=== PATIENT | female | born 1950 | race Caucasian/White ===

== ENCOUNTER 2019-06-07 08:02 | Inpatient (IN) ==
[2019-06-07] MEDS ORDERED: 0.9 % Sodium Chloride 1,000 ML IVC ONE (08:30)
[2019-06-07] MEDS ORDERED: Morphine Sulfate 2 MG/ML SYRINGE IVP ONE (08:30)
[2019-06-07] MEDS ORDERED: Ondansetron 4 MG/2 ML VIAL IVP ONE (08:30)
[2019-06-07] MEDS ORDERED: Isovue-370 500 ML BOTTLE IVP ONE (08:31)
[2019-06-07 08:50] LABS: Basophils % 0.2 %; Eosinophils # 0.1 K/mcL (0.0-0.6); Eosinophils % 0.4 %; Hematocrit 36.3 % (35.3-44.9); Hemoglobin 11.7 g/dL (11.5-15.4); Immature Granulocytes % 0.4 % (0-4); Lymphocytes # 0.3 K/mcL (0.6-4.6); Lymphocytes % 2.3 %; Mean Corpuscular HGB Conc 32.2 g/dL (31.6-35.5); Mean Corpuscular Hemoglobin 28.2 pg (28.0-33.3); Mean Corpuscular Volume 87.5 fL (83.0-100.0); Mean Platelet Volume 9.2 fL (9.4-12.4); Monocytes # 0.4 K/mcL (0.0-1.3); Monocytes % 2.8 %; Neutrophils # 13.8 K/mcL (1.6-8.9); Platelet Count 275 K/mcL (140-400); Red Blood Count 4.15 M/mcL (3.82-4.97); Red Cell Distribution Width 14.6 % (11.5-14.5); Segmented Neutrophils % 93.9 %; White Blood Count 14.7 K/mcL (4.3-11.1)
[2019-06-07] MEDS ORDERED: *HR* HYDROmorphone (PF) 1 MG/ML SYRINGE IVP ONE (08:52)
[2019-06-07 09:10] LABS: Alanine Aminotransferase 30 Units/L (7-52); Albumin 3.9 g/dL (3.5-5.7); Albumin/Globulin Ratio 1.5 (1.1-2.2); Alkaline Phosphatase 81 Units/L (34-104); Amylase 15 Units/L (29-103); Aspartate Amino Transferase 20 Units/L (13-39); BUN/Creatinine Ratio 18 (6-26); Bilirubin,Direct 0.2 mg/dL (0.0-0.2); Bilirubin,Indirect 0.7 mg/dL (0.0-1.0); Bilirubin,Total 0.9 mg/dL (0.3-1.0); Blood Urea Nitrogen 12 mg/dL (8-23); Calcium 9.3 mg/dL (8.6-10.3); Carbon Dioxide 30 mEq/L (23-29); Chloride 96 mEq/L (98-107); Globulin 2.6 g/dL (2.4-3.5); Glucose 130 mg/dL (70-105); Lipase 17 Units/L (11-82); Osmolality,Calculated 284 (280-300); Potassium 3.1 mEq/L (3.5-5.1); Sodium 136 mEq/L (136-145); Total Protein 6.5 g/dL (6.4-8.9); eGFR For African Americans > 60 (> 60); eGFR For Non-African Americans > 60 (> 60)
[2019-06-07] MEDS ORDERED: MetroNIDAZOLE 500 MG/100 ML 500 MG/100 ML BAG IVPB ONE (10:11)
[2019-06-07] MEDS ORDERED: 0.9 % Sodium Chloride 1,000 ML IVC SCH ×2 (10:30→12:14)
[2019-06-07 10:45] LABS: Bilirubin,Urine Negative (Negative); Clarity,Urine Clear (Clear); Color,Urine Yellow (Yellow); Glucose,Urine (UA) Normal (Normal); Ketones,Urine Negative (Negative); Leukocyte Esterase,Urine Negative (Negative); Nitrite,Urine Negative (Negative); PH,Urine 6.5 pH Units (5.0-8.0); Protein,Urine Negative (Neg-Trace); Urobilinogen,Urine Normal (Normal)
[2019-06-07 10:47] LABS: Blood,Urine Negative (Negative)
[2019-06-07] MEDS ORDERED: Acetaminophen 325 MG TABLET PO ONE (11:21)
[2019-06-07] MEDS ORDERED: RESVERATROL PO SCH (12:14)
[2019-06-07] MEDS ORDERED: [UNRECOGNIZED DRUG - OTHER] PO SCH (12:14)
[2019-06-07] MEDS ORDERED: NON-FORMULARY MEDICATION 1 EACH EACH (Potassium 99 MG) PO SCH (12:14)
[2019-06-07] MEDS ORDERED: Nitroglycerin 0.4 MG TAB.SUBL SL PRN (12:14)
[2019-06-07] MEDS ORDERED: *HR* HYDROmorphone (PF) 1 MG/ML SYRINGE IVP PRN (12:14)
[2019-06-07] MEDS ORDERED: Metoprolol XL (24 HR) Succ 50 MG TAB.ER.24H PO SCH (12:14)
[2019-06-07] MEDS ORDERED: [UNRECOGNIZED DRUG - OTHER] PO SCH (12:14)
[2019-06-07] MEDS ORDERED: NON-FORMULARY MEDICATION 1 EACH EACH (Ezetimibe [Zetia] 10 MG) PO SCH (12:14)
[2019-06-07] MEDS ORDERED: VITAMIN E MIXED PO SCH (12:14)
[2019-06-07] MEDS ORDERED: Naloxone 0.4 MG/ML INJ IVP PRN (12:14)
[2019-06-07] MEDS ORDERED: UBIDECARENONE PO SCH (12:14)
[2019-06-07] MEDS ORDERED: QUERCETIN PO SCH (12:14)
[2019-06-07] MEDS ORDERED: EPINEPHRINE 0.15 MG IJ SCH (12:14)
[2019-06-07] MEDS: Aspirin 81 MG TAB.CHEW PO SCH (14:29)
[2019-06-07] MEDS: Metoprolol XL (24 HR) Succ 50 MG TAB.ER.24H PO SCH (14:29)
[2019-06-07] MEDS: hydroCHLOROthiazide 25 MG TABLET PO SCH (14:29)
[2019-06-07] MEDS: amLODIPine 5 MG TABLET PO SCH (14:29)
[2019-06-07] MEDS: Multivit/Ca/Min/Fe/FA 1 TAB TABLET PO SCH (14:29)
[2019-06-07] MEDS: levoFLOXacin 750 MG/150 ML 750 MG/150 ML BAG IVPB SCH (14:30)
[2019-06-07] MEDS ORDERED: *HR* LORazepam 1 MG TABLET PO SCH (15:00)
[2019-06-07] MEDS: MetroNIDAZOLE 500 MG/100 ML 500 MG/100 ML BAG IVPB SCH (17:45)
[2019-06-07] MEDS ORDERED: Ondansetron ODT 4 MG TAB.RAPDIS SL PRN (18:15)
[2019-06-07] MEDS: 0.9 % Sodium Chloride 1,000 ML IVC SCH (19:49)
[2019-06-07] MEDS: *HR* HYDROcodone/Acet 5/325 mg TABLET PO PRN (19:54)
[2019-06-08] MEDS: Acetaminophen 325 MG TABLET PO PRN (03:52)
[2019-06-08] MEDS: MetroNIDAZOLE 500 MG/100 ML 500 MG/100 ML BAG IVPB SCH ×4 (05:23→16:54)
[2019-06-08] MEDS: *HR* Enoxaparin 40 MG/0.4 ML SYRINGE SQ SCH (05:24)
[2019-06-08] MEDS: 0.9 % Sodium Chloride 1,000 ML IVC SCH (06:40)
[2019-06-08] MEDS: *HR* HYDROcodone/Acet 5/325 mg TABLET PO PRN ×4 (06:55→21:13)
[2019-06-08 07:49] LABS: Basophils % 0.2 %; Eosinophils # 0.1 K/mcL (0.0-0.6); Eosinophils % 1.6 %; Hematocrit 31.9 % (35.3-44.9); Hemoglobin 9.9 g/dL (11.5-15.4); Immature Granulocytes % 0.6 % (0-4); Lymphocytes # 1.1 K/mcL (0.6-4.6); Mean Corpuscular Hemoglobin 27.8 pg (28.0-33.3); Mean Corpuscular Volume 89.6 fL (83.0-100.0); Monocytes # 0.6 K/mcL (0.0-1.3); Monocytes % 6.6 %; Platelet Count 260 K/mcL (140-400); Red Blood Count 3.56 M/mcL (3.82-4.97); Red Cell Distribution Width 14.6 % (11.5-14.5); White Blood Count 8.8 K/mcL (4.3-11.1)
[2019-06-08 08:00] LABS: BUN/Creatinine Ratio 13 (6-26); Blood Urea Nitrogen 8 mg/dL (8-23); Calcium 8.4 mg/dL (8.6-10.3); Carbon Dioxide 28 mEq/L (23-29); Chloride 100 mEq/L (98-107); Glucose 120 mg/dL (70-105); Osmolality,Calculated 280 (280-300); Potassium 3.6 mEq/L (3.5-5.1); Sodium 135 mEq/L (136-145); eGFR For African Americans > 60 (> 60); eGFR For Non-African Americans > 60 (> 60)
[2019-06-08] MEDS: Aspirin 81 MG TAB.CHEW PO SCH (08:45)
[2019-06-08] MEDS: Metoprolol XL (24 HR) Succ 50 MG TAB.ER.24H PO SCH (08:45)
[2019-06-08] MEDS: Multivit/Ca/Min/Fe/FA 1 TAB TABLET PO SCH (08:45)
[2019-06-08] MEDS: levoFLOXacin 750 MG/150 ML 750 MG/150 ML BAG IVPB SCH (08:46)
[2019-06-08] MEDS: Cholecalciferol (D-3) 1,000 UNIT (25MCG) TABLET PO SCH (08:46)
[2019-06-08] MEDS: hydroCHLOROthiazide 25 MG TABLET PO SCH (08:47)
[2019-06-08] MEDS: amLODIPine 5 MG TABLET PO SCH (08:47)
[2019-06-08] MEDS: *HR* LORazepam 1 MG TABLET PO PRN (09:02)
[2019-06-09] MEDS: MetroNIDAZOLE 500 MG/100 ML 500 MG/100 ML BAG IVPB SCH ×5 (00:40→23:53)
[2019-06-09] MEDS: 0.9 % Sodium Chloride 1,000 ML IVC SCH ×3 (01:57→22:39)
[2019-06-09 05:09] LABS: Basophils % 0.2 %; Eosinophils # 0.3 K/mcL (0.0-0.6); Hemoglobin 10.2 g/dL (11.5-15.4); Immature Granulocytes % 0.3 % (0-4); Lymphocytes # 1.6 K/mcL (0.6-4.6); Lymphocytes % 17.1 %; Mean Corpuscular HGB Conc 30.9 g/dL (31.6-35.5); Mean Corpuscular Volume 90.7 fL (83.0-100.0); Mean Platelet Volume 9.6 fL (9.4-12.4); Monocytes # 0.8 K/mcL (0.0-1.3); Monocytes % 8.4 %; Neutrophils # 6.8 K/mcL (1.6-8.9); Platelet Count 274 K/mcL (140-400); Red Blood Count 3.64 M/mcL (3.82-4.97); Red Cell Distribution Width 14.6 % (11.5-14.5); White Blood Count 9.6 K/mcL (4.3-11.1)
[2019-06-09 05:27] LABS: BUN/Creatinine Ratio 17 (6-26); Blood Urea Nitrogen 11 mg/dL (8-23); Calcium 8.4 mg/dL (8.6-10.3); Carbon Dioxide 32 mEq/L (23-29); Chloride 106 mEq/L (98-107); Glucose 103 mg/dL (70-105); Osmolality,Calculated 292 (280-300); Potassium 4.3 mEq/L (3.5-5.1); Sodium 141 mEq/L (136-145); eGFR For African Americans > 60 (> 60); eGFR For Non-African Americans > 60 (> 60)
[2019-06-09] MEDS: *HR* Enoxaparin 40 MG/0.4 ML SYRINGE SQ SCH (06:57)
[2019-06-09] MEDS: *HR* HYDROcodone/Acet 5/325 mg TABLET PO PRN ×2 (07:26→18:57)
[2019-06-09] MEDS: Metoprolol XL (24 HR) Succ 50 MG TAB.ER.24H PO SCH (08:28)
[2019-06-09] MEDS: Aspirin 81 MG TAB.CHEW PO SCH (08:28)
[2019-06-09] MEDS: *HR* LORazepam 1 MG TABLET PO PRN ×2 (08:28→22:33)
[2019-06-09] MEDS: Multivit/Ca/Min/Fe/FA 1 TAB TABLET PO SCH (08:28)
[2019-06-09] MEDS: Cholecalciferol (D-3) 1,000 UNIT (25MCG) TABLET PO SCH (08:28)
[2019-06-09] MEDS: amLODIPine 5 MG TABLET PO SCH (08:29)
[2019-06-09] MEDS: hydroCHLOROthiazide 25 MG TABLET PO SCH (08:29)
[2019-06-09] MEDS: levoFLOXacin 750 MG/150 ML 750 MG/150 ML BAG IVPB SCH (08:30)
[2019-06-10] MEDS: *HR* HYDROcodone/Acet 5/325 mg TABLET PO PRN
[2019-06-10] MEDS: Acetaminophen 325 MG TABLET PO PRN (04:19)
[2019-06-10 05:42] LABS: Basophils % 0.2 %; Eosinophils # 0.3 K/mcL (0.0-0.6); Eosinophils % 3.7 %; Hematocrit 32.5 % (35.3-44.9); Immature Granulocytes % 0.5 % (0-4); Lymphocytes # 1.5 K/mcL (0.6-4.6); Lymphocytes % 17.1 %; Mean Corpuscular HGB Conc 30.8 g/dL (31.6-35.5); Mean Corpuscular Hemoglobin 27.7 pg (28.0-33.3); Mean Platelet Volume 9.6 fL (9.4-12.4); Monocytes # 0.9 K/mcL (0.0-1.3); Monocytes % 10.1 %; Neutrophils # 5.9 K/mcL (1.6-8.9); Platelet Count 273 K/mcL (140-400); Red Blood Count 3.61 M/mcL (3.82-4.97); Red Cell Distribution Width 14.5 % (11.5-14.5); Segmented Neutrophils % 68.4 %; White Blood Count 8.7 K/mcL (4.3-11.1)
[2019-06-10 05:59] LABS: BUN/Creatinine Ratio 11 (6-26); Blood Urea Nitrogen 7 mg/dL (8-23); Calcium 8.2 mg/dL (8.6-10.3); Carbon Dioxide 31 mEq/L (23-29); Chloride 105 mEq/L (98-107); Glucose 105 mg/dL (70-105); Osmolality,Calculated 292 (280-300); Potassium 3.3 mEq/L (3.5-5.1); Sodium 142 mEq/L (136-145); eGFR For African Americans > 60 (> 60); eGFR For Non-African Americans > 60 (> 60)
[2019-06-10] MEDS: MetroNIDAZOLE 500 MG/100 ML 500 MG/100 ML BAG IVPB SCH (06:27)
[2019-06-10] MEDS: *HR* Enoxaparin 40 MG/0.4 ML SYRINGE SQ SCH (07:22)
[2019-06-10 08:00] VITALS: BP 129/78
[2019-06-10] MEDS: levoFLOXacin 750 MG/150 ML 750 MG/150 ML BAG IVPB SCH (08:53)
[2019-06-10] MEDS: Metoprolol XL (24 HR) Succ 50 MG TAB.ER.24H PO SCH (08:55)
[2019-06-10] MEDS: Multivit/Ca/Min/Fe/FA 1 TAB TABLET PO SCH (08:55)
[2019-06-10] MEDS: 0.9 % Sodium Chloride 1,000 ML IVC SCH (08:55)
[2019-06-10] MEDS: Cholecalciferol (D-3) 1,000 UNIT (25MCG) TABLET PO SCH (08:56)
[2019-06-10] MEDS: Aspirin 81 MG TAB.CHEW PO SCH (08:56)
[2019-06-10] MEDS: amLODIPine 5 MG TABLET PO SCH (08:56)
[2019-06-10] MEDS: hydroCHLOROthiazide 25 MG TABLET PO SCH (08:56)
[2019-06-10] MEDS: *HR* LORazepam 1 MG TABLET PO PRN (10:21)
== END 2019-06-10 13:10 | disposition home or self-care (01) | DRG 392 ==
LOC: EMEROOGRE 08:02 → INPGRE 11:12
PROVIDERS: ADMIT Family Medicine; ATTEND Family Medicine